=== PATIENT | male | born 1970 | race African-American/Black ===

== ENCOUNTER 2017-12-21 19:26 | Emergency (ER) | payer BC ==
[2017-12-21 20:16] LABS: ADD MAN DIFF? NO
[2017-12-21 20:21] LABS: BASO % 1 % (0-3); EOS # 0.1 x10^3/uL (0.0-0.7); EOS % 3 % (0-3); HEMATOCRIT 41.1 % (39.0-53.0); HEMOGLOBIN 14.4 g/dL (13.0-17.5); LYMPH # 1.9 x10^3/uL (1.0-4.8); LYMPH % 36 % (24-48); MEAN CORPUSCULAR HEMOGLOBIN 33 pg (25-35); MEAN CORPUSCULAR HGB CONC 35 g/dL (31-37); MEAN CORPUSCULAR VOLUME 94 fL (79-100); MONO # 0.5 x10^3/uL (0.0-1.1); MONO % 9 % (0-9); NEUT # 2.7 x10^3uL (1.8-7.7); NEUT % 52 % (31-73); PLATELET COUNT 190 x10^3/uL (140-400); RED BLOOD COUNT 4.36 x10^6/uL (4.30-5.70); RED CELL DISTRIBUTION WIDTH 12.6 % (11.5-14.5); WHITE BLOOD COUNT 5.2 x10^3/uL (4.0-11.0)
[2017-12-21 20:23] LABS: BILIRUBIN,URINE NEGATIVE (NEG); CLARITY,URINE CLEAR; COLOR,URINE YELLOW; GLUCOSE,URINE NEGATIVE (NEG); NITRITE,URINE NEGATIVE (NEG); PH,URINE 7.5; PROTEIN,URINE NEGATIVE (NEG-TRACE)
[2017-12-21 20:28] LABS: ANION GAP 3 (6-14); BLOOD UREA NITROGEN 13 mg/dL (8-26); BUN/CREATININE RATIO 10 (6-20); CALCIUM 8.7 mg/dL (8.5-10.1); CARBON DIOXIDE 30 mmol/L (21-32); CHLORIDE 108 mmol/L (98-107); CREATININE 1.3 mg/dL (0.7-1.3); GFR 71.6; GLUCOSE 113 mg/dL (70-99); POTASSIUM 3.7 mmol/L (3.5-5.1); SODIUM 141 mmol/L (136-145)
[2017-12-21 20:32] LABS: INR 1.1 (0.8-1.1); PARTIAL THROMBOPLASTIN TIME 32 SEC (24-38); PROTHROMBIN TIME PATIENT 13.6 SEC (11.7-14.0)
[2017-12-21 20:34] LABS: ALBUMIN 3.4 g/dL (3.4-5.0); ALK PHOS 96 U/L (46-116); ALT (SGPT) 24 U/L (16-63); AST (SGOT) 17 U/L (15-37); TOTAL BILIRUBIN 0.4 mg/dL (0.2-1.0); TOTAL PROTEIN 6.8 g/dL (6.4-8.2)
[2017-12-21 20:38] LABS: TROPONINI < 0.017 ng/mL (0.000-0.055)
[2017-12-21 20:41] LABS: BACTERIA,URINE 0 /HPF (0-FEW); RBC,URINE 0 /HPF (0-2); SQUAMOUS EPITHELIAL CELL,UR OCC /LPF; WBC,URINE 0 /HPF (0-4)
[2017-12-21] MEDS: IV NORMAL SALINE 500ML BAG 500 ML IV (20:46)
[2017-12-21 20:49] LABS: NT-PRO BNP 48 pg/mL (0-124)
== END 2017-12-21 22:29 | disposition home or self-care (01) ==
LOC: ER 19:26
DX: R55 Syncope and collapse (principal); D86.9 Sarcoidosis, unspecified; I10 Essential (primary) hypertension
CPT/HCPCS: 36415; 70450; 80053; 81001; 83880; 84484; 85025; 85610; 85730; 93005; 96360; 99285-25; J7040

== ENCOUNTER 2018-01-19 07:03 | Emergency (ER) | payer BC ==
[2018-01-19] MEDS: IBUPROFEN 800 MG TABLET. PO (07:28)
[2018-01-19] MEDS: oxyCODONE/APAP 10/325 1 TAB TABLET PO (08:14)
== END 2018-01-19 08:16 | disposition home or self-care (01) ==
LOC: ER 07:03
DX: S62.337A Displaced fracture of neck of fifth metacarpal bone, left hand, initial encounter for closed fracture (principal); W22.01XA Walked into wall, initial encounter; Y93.89 Activity, other specified; Y99.8 Other external cause status; Y92.89 Other specified places as the place of occurrence of the external cause
CPT/HCPCS: 29125; 73130; 99284

== ENCOUNTER 2018-09-04 11:59 | Emergency (ER) | payer BC ==
[~2018-09-04] VITALS: Ht 190.5 cm; Wt 98.4 kg
[~2018-09-04 11:59] MED LIST: HYDR-3164 PO
[2018-09-04 12:16] VITALS: BP 145/90
--- NOTE | 2018-09-04 13:17 | PHYS DOC ---
Past Medical History Past Medical History: Other Additional Past Medical Histor: SARCOIDOSIS Past Surgical History: Other Additional Past Surgical Histo: HERNIA SURGERY Alcohol Use: Occasionally Drug Use: None Adult General Chief Complaint Chief Complaint: COUGH HPI HPI Patient is a pleasant 48-year-old -[place] male who presents to the emergency department for evaluation. He states that for the past week, he has had nasal congestion, postnasal drip, and a cough productive of greenish sputum. He has not had any fevers or chills, and has not had any pain. He has not had any nausea or vomiting, chest pain, or headache. There are no alleviating, or exacerbating factors to his symptoms otherwise. Review of Systems Review of Systems Constitutional: Denies fever or chills [] Eyes: Denies change in visual acuity, redness, or eye pain [] HENT: Denies otalgia or sore throat [] Respiratory: Denies pleuritic pain or shortness of breath [] Cardiovascular: No additional information not addressed in HPI [] GI: Denies abdominal pain, nausea, vomiting, bloody stools or diarrhea [] : Denies dysuria or hematuria [] Musculoskeletal: Denies back pain or joint pain [] Integument: Denies rash or skin lesions [] Neurologic: Denies headache, focal weakness or sensory changes [] Allergies Allergies Allergies Coded Allergies Type Severity Reaction Last Updated Verified No Known Drug Allergies 11/19/13 No Physical Exam Physical Exam PHYSICAL EXAM: CONSTITUTIONAL: Well developed, well nourished HEAD: normocephalic, atraumatic EENT: PERRL, EOMI. Conjunctivae normal color, sclerae non-icteric; moist mucous membranes. Nasal congestion is present. NECK: Supple, non-tender; no meningismus. LUNGS: Lungs CTA, breathing even and unlabored. Normal air movement. HEART: Regular rate and rhythm, no murmur CHEST: No deformity; non-tender ABDOMEN: The abdomen is soft, and non-tender, no masses or bruits. EXTREM: Normal ROM; no deformity, no calf tenderness. Normal pulses palpable in all extremities. There is no pedal edema. SKIN: No rash; no diaphoresis NEURO: Alert; normal speech and cognition; CN's grossly intact; strength grossly intact without focal deficit. BACK: No CVA TTP. Current Patient Data Vital Signs Vital Signs Date Time Temp Pulse Resp B/P (MAP) Pulse Ox O2 Delivery O2 Flow Rate FiO2 09/04/18 12:16 98.6 64 18 145/90 (108) 98 Room Air 98.6 Lab Values Laboratory Tests Test 09/04/18 13:18 Influenza Type A Antigen Negative (NEGATIVE) Influenza Type B Antigen Negative (NEGATIVE) EKG EKG [] Radiology/Procedures Radiology/Procedures [PROCEDURE: CHEST PA & LATERAL EXAM: Chest, 2 views. HISTORY: Productive cough. COMPARISON: 09/22/2015. FINDINGS: 2 views of the chest are obtained. There is no infiltrate, pleural effusion or pneumothorax. The heart is normal in size. IMPRESSION: No acute pulmonary finding. ] Course & Med Decision Making Course & Med Decision Making Pertinent Labs and Imaging studies reviewed. (See chart for details) [1:55 PM:Patient remains stable. I discussed test results, the need for close follow-up, and return precautions.] Dragon Disclaimer Dragon Disclaimer This electronic medical record was generated, in whole or in part, using a voice recognition dictation system. Departure Departure Impression: Primary Impression: Upper respiratory infection Disposition: 01 HOME, SELF-CARE Condition: STABLE Patient Instructions: Upper Respiratory Infection, Adult Scripts Benzonatate (TESSALON PERLE) 100 Mg Capsule 1 CAP PO TID, #21 CAP Prov: SHREE ETIENNE MD 09/04/18 SHREE ETIENNE MD Sep 04, 2018 13:17
--- NOTE | 2018-09-04 13:31 | RAD ---
EXAM: Chest, 2 views. HISTORY: Productive cough. COMPARISON: 09/22/2015. FINDINGS: 2 views of the chest are obtained. There is no infiltrate, pleural effusion or pneumothorax. The heart is normal in size. IMPRESSION: No acute pulmonary finding. Electronically signed by: Reshma Sanford MD (09/04/2018 1:27 PM) [place] [id number]
[2018-09-04 13:49] LABS: INFLUENZA A PATIENT NEGATIVE (NEGATIVE); INFLUENZA B PATIENT NEGATIVE (NEGATIVE)
[2018-09-04] MEDS ORDERED: BENZ100C PO (13:58)
== END 2018-09-04 14:25 | disposition home or self-care (01) ==
LOC: ER 11:59
DX: J06.9 Acute upper respiratory infection, unspecified (principal); Z98.890 Other specified postprocedural states
CPT/HCPCS: 71046; 87804; 99284